=== PATIENT | female | born 1970 | race Caucasian/White ===

== ENCOUNTER 2019-12-21 17:41 | Emergency (ER) | payer MEDICAID ==
[~2019-12-21] VITALS: Ht 175.3 cm; Wt 150.0 kg
[~2019-12-21 17:41] MED LIST: CLA10T PO; FLUO20CA39 PO; HYDR-3965 PO; LISI-600 PO; PANT-47 PO; PRAV40TA65 PO
[2019-12-21 19:28] LABS: BASOPHILS # (AUTO) 0.1 X10'3 (0-0.2); BASOPHILS % (AUTO) 0.9 % (0-1); EOSINOPHILS # (AUTO) 0.2 X10'3 (0-0.9); EOSINOPHILS % (AUTO) 1.9 % (0-6); HEMATOCRIT 39.4 % (35.0-45.0); HEMOGLOBIN 13.9 g/dl (12.0-16.0); LYMPHOCYTES # (AUTO) 3.1 X10'3 (1.1-4.8); MEAN CORPUSCULAR HEMOGLOBIN 31.4 PG (27.0-31.0); MEAN CORPUSCULAR HGB CONC 35.3 g/dL (33.0-36.5); MEAN CORPUSCULAR VOLUME 88.8 FL (78-98); MEAN PLATELET VOLUME 7.6 FL (7.4-10.4); MONOCYTES # (AUTO) 0.6 X10'3 (0-0.9); MONOCYTES % (AUTO) 6.1 % (2-12); NEUTROPHILS # (AUTO) 5.8 X10'3 (1.8-7.7); NEUTROPHILS % (AUTO) 59.1 % (42-75); PLATELET COUNT 248 X10'3 (140-440); RED BLOOD COUNT 4.44 X10'6 (4.20-5.60); RED CELL DISTRIBUTION WIDTH 13.4 % (11.5-14.5); WHITE BLOOD COUNT 9.8 X10'3 (4.5-11.0)
[2019-12-21 19:44] LABS: ALANINE AMINOTRANSFERASE 42 U/L (12-78); ALBUMIN 3.2 G/DL (3.4-5.0); ALBUMIN/GLOBULIN RATIO 0.9 (1.1-1.5); ALKALINE PHOSPHATASE 89 IU/L (46-116); ANION GAP 11 (8-16); ASPARTATE AMINO TRANSFERASE 28 U/L (10-37); BILIRUBIN,TOTAL 0.2 MG/DL (0.1-1.0); BLOOD UREA NITROGEN 14 MG/DL (7-18); BUN/CREATININE RATIO 21.9 (6.6-38.0); CALCIUM 9.7 MG/DL (8.5-10.1); CHLORIDE 103 MMOL/L (99-107); CREATININE 0.64 MG/DL (0.40-0.90); GLUCOSE 174 MG/DL (70-104); POTASSIUM 3.5 MMOL/L (3.5-5.1); SODIUM 139 MMOL/L (135-145); TOTAL CARBON DIOXIDE 25.2 MMOL/L (24-32); TOTAL PROTEIN 6.9 G/DL (6.4-8.2); eGFR > 90 ML/MIN
[2019-12-21 20:38] VITALS: BP 115/69
== END 2019-12-21 21:10 | disposition home or self-care (01) ==
LOC: ER 17:42
DX: R07.89 Other chest pain (principal); M25.512 Pain in left shoulder; R05 Cough; I10 Essential (primary) hypertension; E11.9 Type 2 diabetes mellitus without complications; F17.200 Nicotine dependence, unspecified, uncomplicated; Z98.890 Other specified postprocedural states; Z88.0 Allergy status to penicillin; Z88.5 Allergy status to narcotic agent; Z79.899 Other long term (current) drug therapy
CPT/HCPCS: 36415; 71045; 80053; 84484; 85025; 93005; 99284

== ENCOUNTER 2020-04-04 08:35 | Emergency (ER) | payer MEDICAID ==
[~2020-04-04] VITALS: Ht 167.6 cm; Wt 113.7 kg
[2020-04-04 09:54] LABS: CLARITY,URINE SLIGHTLY CLOUDY (Clear); COLOR,URINE YELLOW (Yellow); GLUCOSE, URINE NEGATIVE (Neg); KETONES,URINE NEGATIVE (Neg); LEUKOCYTE ESTERASE ,URINE NEGATIVE (Neg); NITRITES, URINE NEGATIVE (Neg); OCCULT BLOOD,URINE LARGE (Neg); PROTEIN,URINE NEGATIVE (Neg)
[2020-04-04 09:59] LABS: BASOPHILS # (AUTO) 0.1 X10'3 (0-0.2); BASOPHILS % (AUTO) 0.4 % (0-1); EOSINOPHILS % (AUTO) 0.2 % (0-6); HEMOGLOBIN 13.3 g/dl (12.0-16.0); LYMPHOCYTES # (AUTO) 1.6 X10'3 (1.1-4.8); MEAN CORPUSCULAR HEMOGLOBIN 30.8 PG (27.0-31.0); MEAN CORPUSCULAR HGB CONC 34.1 g/dL (33.0-36.5); MEAN CORPUSCULAR VOLUME 90.2 FL (78-98); MEAN PLATELET VOLUME 7.6 FL (7.4-10.4); MONOCYTES # (AUTO) 1.1 X10'3 (0-0.9); MONOCYTES % (AUTO) 7.1 % (2-12); NEUTROPHILS # (AUTO) 13.3 X10'3 (1.8-7.7); NEUTROPHILS % (AUTO) 82.3 % (42-75); PLATELET COUNT 260 X10'3 (140-440); RED BLOOD COUNT 4.32 X10'6 (4.20-5.60); RED CELL DISTRIBUTION WIDTH 13.6 % (11.5-14.5); WHITE BLOOD COUNT 16.2 X10'3 (4.5-11.0)
[2020-04-04 10:00] LABS: UA COLLECTION TYPE CLN CATCH MIDSTREAM
[2020-04-04 10:01] LABS: BACTERIA,URINE 1+ /HPF (Neg); MUCUS STRANDS FEW /LPF (Neg); RENAL CELLS, URINE FEW /HPF; SQUAMOUS EPITHELIAL CELL,UR MODERATE /LPF (FEW); TRANSITIONAL EPI CELLS,URINE FEW /HPF; WBC,URINE 0-4 /HPF (0-4)
[2020-04-04 10:06] LABS: URINE HCG NEGATIVE (NEG)
[2020-04-04 10:13] LABS: ALBUMIN/GLOBULIN RATIO 0.7 (1.1-1.5); ALKALINE PHOSPHATASE 68 IU/L (46-116); ANION GAP 11 (8-16); ASPARTATE AMINO TRANSFERASE 23 U/L (10-37); BILIRUBIN,TOTAL 0.5 MG/DL (0.1-1.0); BLOOD UREA NITROGEN 14 MG/DL (7-18); BUN/CREATININE RATIO 13.2 (6.6-38.0); CALCIUM 9.1 MG/DL (8.5-10.1); CHLORIDE 97 MMOL/L (99-107); CREATININE 1.06 MG/DL (0.40-0.90); GLUCOSE 144 MG/DL (70-104); MAGNESIUM 1.4 MG/DL (1.5-2.4); POTASSIUM 3.9 MMOL/L (3.5-5.1); SODIUM 132 MMOL/L (135-145); TOTAL CARBON DIOXIDE 23.7 MMOL/L (24-32); TOTAL PROTEIN 7.5 G/DL (6.4-8.2); eGFR 55 ML/MIN
[2020-04-04 10:14] LABS: ALANINE AMINOTRANSFERASE < 6 U/L (12-78)
[2020-04-04] MEDS ORDERED: normal saline 1000ML IV soln IVB ONE ×2 (10:30→11:55)
[2020-04-04] MEDS ORDERED: CefTRIAXone 2gm/D5W 50ml 50 ML IV ONE (10:30)
[2020-04-04] MEDS ORDERED: ondansetron 4mg rapidly disintigrating tab PO ONE (11:00)
[2020-04-04] MEDS ORDERED: sulfamethoxazole/trimethoprim DS (800/160mg) tablet PO ONE (11:55)
[2020-04-04] MEDS ORDERED: CEPH500C5 PO (13:10)
[2020-04-04 13:37] VITALS: BP 112/65
[2020-04-05] MEDS ORDERED: CHOL500050 PO (12:31)
[2020-04-05] MEDS ORDERED: ASPI-1475 PO (12:31)
[2020-04-05] MEDS ORDERED: METF-438 PO (12:31)
[2020-04-05] MEDS ORDERED: HYDR25TA4 PO (12:31)
[2020-04-05] MEDS ORDERED: ATOR40TA72 PO (12:31)
[2020-04-05] MEDS ORDERED: CEPH-572 PO (12:32)
== END 2020-04-04 13:39 | disposition home or self-care (01) ==
LOC: ER 08:35
DX: L03.312 Cellulitis of back [any part except buttock and flank] (principal); R50.9 Fever, unspecified; I10 Essential (primary) hypertension; E11.9 Type 2 diabetes mellitus without complications; Z98.890 Other specified postprocedural states; Z88.0 Allergy status to penicillin; Z88.5 Allergy status to narcotic agent; Z79.899 Other long term (current) drug therapy
CPT/HCPCS: 80053; 81001; 81025; 83605; 83735; 84145; 85025; 87040; 96365; 99284; J0696; J7030

== ENCOUNTER 2020-04-05 06:52 | Inpatient (IN) | payer MEDICAID ==
[~2020-04-05] VITALS: Ht 167.6 cm; Wt 106.0 kg
[~2020-04-05 06:52] MED LIST changes: +CEPH500C5 PO
[2020-04-05] MEDS ORDERED: LIDOcaine 1% W/epiNEPHrine 1:100,000 20ml vial SQ ONE (07:35)
[2020-04-05] MEDS ORDERED: ethyl chloride 103.5ml spray TP ONE (07:40)
--- NOTE | 2020-04-05 08:20 | NUR ---
Assisted Dr Raphael with I&D of abscess on left axillary area. 115mL of purulent drainage removed from abscess. Dr Raphael packed wound with 1-4x4 and then put some 4x4s over it and secured it with tape.
[2020-04-05] MEDS ORDERED: normal saline 1000ml 1,000 ML IV ONE (08:29)
[2020-04-05 08:45] LABS: BASOPHILS % (AUTO) 0.2 % (0-1); EOSINOPHILS # (AUTO) 0.1 X10'3 (0-0.9); EOSINOPHILS % (AUTO) 0.3 % (0-6); HEMATOCRIT 37.1 % (35.0-45.0); HEMOGLOBIN 12.6 g/dl (12.0-16.0); LYMPHOCYTES # (AUTO) 1.4 X10'3 (1.1-4.8); LYMPHOCYTES % (AUTO) 9.1 % (21-51); MEAN CORPUSCULAR HEMOGLOBIN 30.9 PG (27.0-31.0); MEAN CORPUSCULAR VOLUME 91.1 FL (78-98); MEAN PLATELET VOLUME 7.4 FL (7.4-10.4); MONOCYTES # (AUTO) 1.1 X10'3 (0-0.9); MONOCYTES % (AUTO) 7.2 % (2-12); NEUTROPHILS # (AUTO) 12.5 X10'3 (1.8-7.7); NEUTROPHILS % (AUTO) 83.2 % (42-75); PLATELET COUNT 261 X10'3 (140-440); RED BLOOD COUNT 4.08 X10'6 (4.20-5.60); RED CELL DISTRIBUTION WIDTH 13.5 % (11.5-14.5)
[2020-04-05 09:01] LABS: ALANINE AMINOTRANSFERASE 24 U/L (12-78); ALBUMIN 2.5 G/DL (3.4-5.0); ALBUMIN/GLOBULIN RATIO 0.6 (1.1-1.5); ALKALINE PHOSPHATASE 71 IU/L (46-116); ANION GAP 8 (8-16); ASPARTATE AMINO TRANSFERASE 20 U/L (10-37); BILIRUBIN,TOTAL 0.3 MG/DL (0.1-1.0); BLOOD UREA NITROGEN 11 MG/DL (7-18); BUN/CREATININE RATIO 12.1 (6.6-38.0); C-REACTIVE PROTEIN 16.87 MG/DL (0.0-0.5); CALCIUM 8.9 MG/DL (8.5-10.1); CHLORIDE 99 MMOL/L (99-107); CREATININE 0.91 MG/DL (0.40-0.90); GLUCOSE 155 MG/DL (70-104); POTASSIUM 3.7 MMOL/L (3.5-5.1); SODIUM 132 MMOL/L (135-145); TOTAL CARBON DIOXIDE 24.6 MMOL/L (24-32); TOTAL PROTEIN 6.9 G/DL (6.4-8.2); eGFR 66 ML/MIN
[2020-04-05] MEDS: normal saline 1000ml 1,000 ML IV SCH ×2 (10:04→20:04)
[2020-04-05] MEDS ORDERED: ondansetron/PF 4mg/2ml inj IV PRN (10:05)
[2020-04-05] MEDS ORDERED: mag hydrox/Alum hydrox/simeth 30ml oral suspension PO PRN (10:05)
[2020-04-05] MEDS ORDERED: acetaminophen 325mg tablet PO PRN (10:05)
[2020-04-05] MEDS ORDERED: morphine 2 MG/ML inj. syringe IV PRN (10:05)
[2020-04-05] MEDS ORDERED: magnesium hydroxide 30ml (MOM) UD suspension PO PRN (10:05)
[2020-04-05] MEDS ORDERED: HYDROcodone/acetaminophen 5mg/325mg tablet PO PRN (10:05)
--- NOTE | 2020-04-05 11:10 | NUR ---
Report received from ED RNJordyn
[2020-04-05 11:30] VITALS: BP 97/51
[2020-04-05] MEDS ORDERED: ATOR40TA72 PO (12:31)
[2020-04-05] MEDS ORDERED: HYDR25TA4 PO (12:31)
[2020-04-05] MEDS ORDERED: ASPI-1475 PO (12:31)
[2020-04-05] MEDS ORDERED: CHOL500050 PO (12:31)
[2020-04-05] MEDS ORDERED: METF-438 PO (12:31)
[2020-04-05] MEDS ORDERED: CEPH-572 PO (12:32)
[2020-04-05] MEDS: atorvastatin 20mg tablet PO SCH (14:35)
[2020-04-05] MEDS: vitamin D (cholecalciferol) 1,000 unit tablet PO SCH (14:36)
[2020-04-05] MEDS ORDERED: iohexol 300mg/ml 100ml inj. ONE (16:23)
[2020-04-05] MEDS: VANCOMYCIN 1,500MG inj. 1,500 MG in normal saline 500ml IV soln 500 ML IV SCH (17:30)
[2020-04-05] MEDS ORDERED: metFORMIN 500mg tablet PO SCH (17:30)
--- NOTE | 2020-04-05 18:35 | NUR ---
Problems reprioritized. Patient report given, questions answered & plan of care reviewed with Daylin Mao RN.
--- NOTE | 2020-04-05 18:40 | NUR ---
Patient in room [facility]. I have received report from SYLVIA WITT and had the opportunity to ask questions and assume patient care.
[2020-04-05] MEDS: lactobacillus rhamnosus 10,000 MMU CELLS/CAPSULE PO SCH (19:30)
[2020-04-05] MEDS: heparin, porcine 5000 units/ml vial SQ SCH (19:31)
[2020-04-05 19:57] VITALS: BP 98/45
[2020-04-05] MEDS ORDERED: VANCOmycin 1250MG/NS 250ml Bag 250 ML IV ONE (20:00)
[2020-04-06] VITALS: BP 96/50
[2020-04-06] MEDS: normal saline 1000ml 1,000 ML IV SCH ×2 (01:10→16:13)
[2020-04-06] MEDS: VANCOMYCIN 1,500MG inj. 1,500 MG in normal saline 500ml IV soln 500 ML IV SCH ×3 (01:10→17:26)
[2020-04-06 04:37] LABS: BASOPHILS % (AUTO) 0.4 % (0-1); EOSINOPHILS # (AUTO) 0.2 X10'3 (0-0.9); HEMATOCRIT 34.1 % (35.0-45.0); HEMOGLOBIN 11.4 g/dl (12.0-16.0); LYMPHOCYTES # (AUTO) 1.2 X10'3 (1.1-4.8); LYMPHOCYTES % (AUTO) 14.3 % (21-51); MEAN CORPUSCULAR HEMOGLOBIN 30.7 PG (27.0-31.0); MEAN CORPUSCULAR HGB CONC 33.6 g/dL (33.0-36.5); MEAN CORPUSCULAR VOLUME 91.4 FL (78-98); MEAN PLATELET VOLUME 7.5 FL (7.4-10.4); MONOCYTES # (AUTO) 0.7 X10'3 (0-0.9); NEUTROPHILS # (AUTO) 6.1 X10'3 (1.8-7.7); NEUTROPHILS % (AUTO) 75.3 % (42-75); PLATELET COUNT 234 X10'3 (140-440); RED BLOOD COUNT 3.73 X10'6 (4.20-5.60); RED CELL DISTRIBUTION WIDTH 13.5 % (11.5-14.5); WHITE BLOOD COUNT 8.1 X10'3 (4.5-11.0)
[2020-04-06 04:47] LABS: ALBUMIN 2.3 G/DL (3.4-5.0); ANION GAP 6 (8-16); BLOOD UREA NITROGEN 9 MG/DL (7-18); BUN/CREATININE RATIO 12.3 (6.6-38.0); CALCIUM 8.2 MG/DL (8.5-10.1); CHLORIDE 104 MMOL/L (99-107); CREATININE 0.73 MG/DL (0.40-0.90); GLUCOSE 145 MG/DL (70-104); POTASSIUM 3.6 MMOL/L (3.5-5.1); SODIUM 137 MMOL/L (135-145); TOTAL CARBON DIOXIDE 27.2 MMOL/L (24-32); eGFR 85 ML/MIN
--- NOTE | 2020-04-06 06:05 | NUR ---
Patient in room [facility]. I have received report from Daylin Mao RN and had the opportunity to ask questions and assume patient care.
[2020-04-06 06:30] VITALS: BP 99/53
--- NOTE | 2020-04-06 06:30 | NUR ---
Problems reprioritized. Patient report given, questions answered & plan of care reviewed with SYLVIA RN.
[2020-04-06] MEDS: atorvastatin 20mg tablet PO SCH (08:59)
[2020-04-06] MEDS: aspirin 81mg tablet.DR PO SCH (08:59)
[2020-04-06] MEDS: loratadine 10mg tablet PO SCH (08:59)
[2020-04-06] MEDS: lactobacillus rhamnosus 10,000 MMU CELLS/CAPSULE PO SCH ×2 (08:59→20:45)
[2020-04-06] MEDS: FLUoxetine 20mg capsule PO SCH (09:00)
[2020-04-06] MEDS: vitamin D (cholecalciferol) 1,000 unit tablet PO SCH (09:00)
[2020-04-06] MEDS: lisinopril 20mg tablet PO SCH (09:05)
[2020-04-06] MEDS: HYDROchlorothiazide 25mg tablet PO SCH (09:05)
[2020-04-06] MEDS: heparin, porcine 5000 units/ml vial SQ SCH ×2 (09:25→20:48)
[2020-04-06 11:00] VITALS: BP 114/68
--- NOTE | 2020-04-06 15:57 | NUR ---
DM Consult: Pt admit w/ axillary cellulitis and L axillary abscess s/p I&D in ER. Possible sepsis as well per MD note w/ sepsis score this AM 0 per EMR. Pt PO 100% avg meals w/ 106kg scaled wt; double eggs at breakfast and double meats BIDLD added to better meet pt needs given wt and PO hx. Written DM ed w/ RD contact information placed in pt chart. Addendum: 04/06/20 at [address] Amended: Links added.
[2020-04-06 16:00] VITALS: BP 110/60
[2020-04-06] MEDS ORDERED: VANCOMYCIN LEVEL IV ONE (16:30)
[2020-04-06 18:00] VITALS: BP 110/60
--- NOTE | 2020-04-06 18:10 | NUR ---
Problems reprioritized. Patient report given, questions answered & plan of care reviewed with EDUAR Ayala.
--- NOTE | 2020-04-06 18:30 | NUR ---
Patient in room [facility]. I have received report from SYLVIA and had the opportunity to ask questions and assume patient care. ASSUMED CARE OF PT WITH RN STUDENT JOELLE Hernández
[2020-04-06 23:27] VITALS: BP 102/57
[2020-04-07] MEDS: VANCOMYCIN 1,500MG inj. 1,500 MG in normal saline 500ml IV soln 500 ML IV SCH ×2 (01:34→08:15)
[2020-04-07] MEDS: normal saline 1000ml 1,000 ML IV SCH ×2 (02:04→05:09)
--- NOTE | 2020-04-07 04:07 | NUR ---
Student documentation: I have reviewed and agree with all interventions, assessments performed and documented by JOELLE Ross Medication Administration: For this medication-pass time frame, all medication were reviewed, dispensed, administered and documented per hospital policy by JOELLE Hernández
[2020-04-07 04:59] LABS: BASOPHILS % (AUTO) 0.8 % (0-1); EOSINOPHILS # (AUTO) 0.2 X10'3 (0-0.9); EOSINOPHILS % (AUTO) 3.1 % (0-6); HEMATOCRIT 34.2 % (35.0-45.0); HEMOGLOBIN 11.5 g/dl (12.0-16.0); LYMPHOCYTES # (AUTO) 1.7 X10'3 (1.1-4.8); LYMPHOCYTES % (AUTO) 28.5 % (21-51); MEAN CORPUSCULAR HEMOGLOBIN 30.5 PG (27.0-31.0); MEAN CORPUSCULAR HGB CONC 33.6 g/dL (33.0-36.5); MEAN CORPUSCULAR VOLUME 90.6 FL (78-98); MEAN PLATELET VOLUME 7.5 FL (7.4-10.4); MONOCYTES # (AUTO) 0.7 X10'3 (0-0.9); MONOCYTES % (AUTO) 10.9 % (2-12); NEUTROPHILS # (AUTO) 3.4 X10'3 (1.8-7.7); NEUTROPHILS % (AUTO) 56.7 % (42-75); PLATELET COUNT 240 X10'3 (140-440); RED BLOOD COUNT 3.77 X10'6 (4.20-5.60); RED CELL DISTRIBUTION WIDTH 13.6 % (11.5-14.5)
[2020-04-07 05:02] LABS: ALBUMIN 2.2 G/DL (3.4-5.0); ANION GAP 9 (8-16); BLOOD UREA NITROGEN 9 MG/DL (7-18); BUN/CREATININE RATIO 13.6 (6.6-38.0); CALCIUM 8.6 MG/DL (8.5-10.1); CHLORIDE 106 MMOL/L (99-107); CREATININE 0.66 MG/DL (0.40-0.90); GLUCOSE 148 MG/DL (70-104); POTASSIUM 3.9 MMOL/L (3.5-5.1); SODIUM 140 MMOL/L (135-145); TOTAL CARBON DIOXIDE 25.5 MMOL/L (24-32); eGFR > 90 ML/MIN
--- NOTE | 2020-04-07 06:34 | NUR ---
Patient in room [facility]. I have received report from JEANNE LAI & EDUAR MITCHELL and had the opportunity to ask questions and assume patient care.
[2020-04-07 08:00] VITALS: BP 118/55
[2020-04-07] MEDS: vitamin D (cholecalciferol) 1,000 unit tablet PO SCH (08:15)
[2020-04-07] MEDS: heparin, porcine 5000 units/ml vial SQ SCH (08:15)
[2020-04-07] MEDS: lactobacillus rhamnosus 10,000 MMU CELLS/CAPSULE PO SCH (08:15)
[2020-04-07] MEDS: loratadine 10mg tablet PO SCH (08:15)
[2020-04-07] MEDS: HYDROchlorothiazide 25mg tablet PO SCH (08:15)
[2020-04-07] MEDS: FLUoxetine 20mg capsule PO SCH (08:15)
[2020-04-07] MEDS: aspirin 81mg tablet.DR PO SCH (08:16)
[2020-04-07] MEDS: lisinopril 20mg tablet PO SCH (08:16)
[2020-04-07] MEDS: atorvastatin 20mg tablet PO SCH (08:16)
[2020-04-07 11:00] VITALS: BP 119/71
[2020-04-07] MEDS ORDERED: DOXY-243 PO (11:31)
--- NOTE | 2020-04-07 12:50 | NUR ---
PATIENT STABLE AND APPROPRIATE FOR DISCHARGE, IV TAKEN OUT, MEDS E-SCRIPTED TO PREFERRED PHARMACY, EDUCATION GIVEN, ALL BELONGINGS INCLUDING A CPAP MACHINE SENT WITH PATIENT, PATIENT TAKEN TO LOBBY IN WHEELCHAIR TO AN AWAITING CAR WHERE SIGNIFICANT OTHER WILL TAKE PATIENT HOME
--- NOTE | 2020-04-07 16:15 | NUR ---
Patient called regarding medication that was transmitted to her preferred pharmacy stating that her insurance will not cover that medication and she is unable to pay the cost. Patient name and number was taken down and patient was informed that we would talk to case management and the MD to try and get a different medication ordered for her, case management was then called. Ramya Addendum: 04/07/20 at 1617 by Latisha Llamas RN Read following note, this was filed before finishing.
--- NOTE | 2020-04-07 16:20 | NUR ---
Patient called regarding medication that was transmitted to her preferred pharmacy stating that her insurance will not cover that medication and she is unable to pay the cost. Patient name and number was taken down and patient was informed that we would talk to case management and the MD to try and get a different medication ordered for her. Case management was then called and they stated that we should contact the MD and get an order for a medication that the patient's insurance would cover. Per case technician the insurance for this patient was Partnership. Dr. Perez paged and he quickly returned the page. Dr. Perez gave new order for Bactrim DS which was then called into patient's preferred pharmacy ([facility] on [address]). Patient was then called to notify of the change in medication ordered. There was no answer. A message was left for the patient asking the patient to call back to the surgical unit.
--- NOTE | 2020-04-07 17:08 | NUR ---
Patient called back and was informed about the change in medication. Patient stated that she would go and pick and shovel man the new medication.
== END 2020-04-07 12:51 | disposition home or self-care (01) | DRG 383 ==
LOC: ER 06:53 → ED HOLD 10:04 → EDBEDREQ 10:31 → SUR 3N 11:29
PROVIDERS: ADMIT Family Medicine; ATTEND Family Medicine
PROC: 0X953ZZ Drainage of Left Axilla, Percutaneous Approach (ICD-10-PCS; principal; 2020-04-05)
PROC: BW241ZZ Computerized Tomography (CT Scan) of Chest and Abdomen using Low Osmolar Contrast (ICD-10-PCS; 2020-04-05)
PROC: 5A09357 Assistance with Respiratory Ventilation, Less than 24 Consecutive Hours, Continuous Positive Airway Pressure (ICD-10-PCS; 2020-04-06)
DX: L03.112 Cellulitis of left axilla (principal); E11.9 Type 2 diabetes mellitus without complications; E66.9 Obesity, unspecified; E78.5 Hyperlipidemia, unspecified; F17.210 Nicotine dependence, cigarettes, uncomplicated; G89.4 Chronic pain syndrome; I10 Essential (primary) hypertension; Z88.0 Allergy status to penicillin; Z88.5 Allergy status to narcotic agent; Z68.37 Body mass index [BMI] 37.0-37.9, adult; Z79.899 Other long term (current) drug therapy
CPT/HCPCS: 10060; 36415; 71260; 80048; 80053; 80202; 82948; 83036; 83605; 85025; 86140; 87040; 87070; 87077; 87081; 96365; 99285; G0378; J1644; J3370; J7030; J7040; Q9967

== ENCOUNTER 2020-04-10 08:20 | Day surgery (SDC) | payer MEDICAID ==
[~2020-04-10 08:20] MED LIST changes: +ASPI-1475 PO; +ATOR40TA72 PO; -CEPH500C5 PO; +CHOL500050 PO; +DOXY-243 PO; -HYDR-3965 PO; +HYDR25TA4 PO; +METF-438 PO; -PANT-47 PO; -PRAV40TA65 PO
[2020-04-10] MEDS ORDERED: LIDOcaine 2% 5ml jelly ONE (08:58)
== END 2020-04-10 09:43 | disposition home or self-care (01) ==
LOC: WOUND CARE 08:20
PROVIDERS: ATTEND Nurse Practitioner
DX: E11.622 Type 2 diabetes mellitus with other skin ulcer (principal); L98.492 Non-pressure chronic ulcer of skin of other sites with fat layer exposed; L02.412 Cutaneous abscess of left axilla; E11.65 Type 2 diabetes mellitus with hyperglycemia; I10 Essential (primary) hypertension; E78.5 Hyperlipidemia, unspecified; E66.9 Obesity, unspecified; M79.89 Other specified soft tissue disorders; G89.4 Chronic pain syndrome; F17.210 Nicotine dependence, cigarettes, uncomplicated; Z88.0 Allergy status to penicillin; Z88.5 Allergy status to narcotic agent; Z79.899 Other long term (current) drug therapy; Z98.890 Other specified postprocedural states; Z68.41 Body mass index [BMI] 40.0-44.9, adult
CPT/HCPCS: 36416; 82948; 97597

== ENCOUNTER 2020-04-11 08:30 | Day surgery (SDC) | payer MEDICAID ==
[2020-04-11] MEDS ORDERED: LIDOcaine 2% 5ml jelly ONE (09:09)
== END 2020-04-11 09:39 | disposition home or self-care (01) ==
LOC: WOUND CARE 08:30
PROVIDERS: ATTEND Nurse Practitioner
DX: E11.622 Type 2 diabetes mellitus with other skin ulcer (principal); L98.492 Non-pressure chronic ulcer of skin of other sites with fat layer exposed; L02.412 Cutaneous abscess of left axilla; E11.65 Type 2 diabetes mellitus with hyperglycemia; I10 Essential (primary) hypertension; E78.5 Hyperlipidemia, unspecified; E66.9 Obesity, unspecified; M79.89 Other specified soft tissue disorders; G89.4 Chronic pain syndrome; F17.210 Nicotine dependence, cigarettes, uncomplicated; Z79.899 Other long term (current) drug therapy; Z98.890 Other specified postprocedural states; Z68.41 Body mass index [BMI] 40.0-44.9, adult
CPT/HCPCS: 36416; 82948; 97597

== ENCOUNTER 2020-04-17 10:00 | Day surgery (SDC) | payer MEDICAID ==
[2020-04-17] MEDS ORDERED: LIDOcaine 2% 5ml jelly ONE (10:35)
== END 2020-04-17 10:50 | disposition home or self-care (01) ==
LOC: WOUND CARE 10:00
PROVIDERS: ATTEND Nurse Practitioner
DX: E11.622 Type 2 diabetes mellitus with other skin ulcer (principal); L98.492 Non-pressure chronic ulcer of skin of other sites with fat layer exposed; L02.412 Cutaneous abscess of left axilla; E11.65 Type 2 diabetes mellitus with hyperglycemia; E78.5 Hyperlipidemia, unspecified; I10 Essential (primary) hypertension; E66.9 Obesity, unspecified; M79.89 Other specified soft tissue disorders; G89.4 Chronic pain syndrome; F17.210 Nicotine dependence, cigarettes, uncomplicated; Z79.899 Other long term (current) drug therapy; Z98.890 Other specified postprocedural states; Z68.41 Body mass index [BMI] 40.0-44.9, adult
CPT/HCPCS: 36416; 82948; 97597

== ENCOUNTER 2020-04-24 08:41 | Day surgery (SDC) | payer MEDICAID | END 2020-04-24 11:06 | disposition home or self-care (01) | LOC: WOUND CARE 08:41 | PROVIDERS: ATTEND Nurse Practitioner | DX: E11.622 Type 2 diabetes mellitus with other skin ulcer (principal); L98.492 Non-pressure chronic ulcer of skin of other sites with fat layer exposed; L02.412 Cutaneous abscess of left axilla; E11.65 Type 2 diabetes mellitus with hyperglycemia; E78.5 Hyperlipidemia, unspecified; I10 Essential (primary) hypertension; E66.9 Obesity, unspecified; M79.89 Other specified soft tissue disorders; G89.4 Chronic pain syndrome; F17.210 Nicotine dependence, cigarettes, uncomplicated; Z79.899 Other long term (current) drug therapy; Z98.890 Other specified postprocedural states; Z68.41 Body mass index [BMI] 40.0-44.9, adult | CPT/HCPCS: 97597 ==

== ENCOUNTER 2020-05-01 08:40 | Day surgery (SDC) | payer MEDICAID ==
[~2020-05-01 08:40] MED LIST changes: -DOXY-243 PO
[2020-05-01] MEDS ORDERED: LIDOcaine 2% 5ml jelly ONE (09:02)
== END 2020-05-01 09:47 | disposition home or self-care (01) ==
LOC: WOUND CARE 08:40
PROVIDERS: ATTEND Nurse Practitioner
DX: E11.622 Type 2 diabetes mellitus with other skin ulcer (principal); L98.492 Non-pressure chronic ulcer of skin of other sites with fat layer exposed; L02.412 Cutaneous abscess of left axilla; E11.65 Type 2 diabetes mellitus with hyperglycemia; E78.5 Hyperlipidemia, unspecified; I10 Essential (primary) hypertension; E66.9 Obesity, unspecified; M79.89 Other specified soft tissue disorders; G89.4 Chronic pain syndrome; F17.210 Nicotine dependence, cigarettes, uncomplicated; Z79.899 Other long term (current) drug therapy; Z98.890 Other specified postprocedural states; Z68.41 Body mass index [BMI] 40.0-44.9, adult
CPT/HCPCS: 36416; 82948; 97597

== ENCOUNTER 2020-05-08 08:40 | Day surgery (SDC) | payer MEDICAID ==
[2020-05-08] MEDS ORDERED: LIDOcaine 2% 5ml jelly ONE (08:52)
== END 2020-05-08 09:30 | disposition home or self-care (01) ==
LOC: WOUND CARE 08:40
PROVIDERS: ATTEND Nurse Practitioner
DX: E11.622 Type 2 diabetes mellitus with other skin ulcer (principal); L98.492 Non-pressure chronic ulcer of skin of other sites with fat layer exposed; L02.412 Cutaneous abscess of left axilla; E11.65 Type 2 diabetes mellitus with hyperglycemia; E78.5 Hyperlipidemia, unspecified; I10 Essential (primary) hypertension; E66.9 Obesity, unspecified; M79.89 Other specified soft tissue disorders; G89.4 Chronic pain syndrome; F17.210 Nicotine dependence, cigarettes, uncomplicated; Z79.899 Other long term (current) drug therapy; Z98.890 Other specified postprocedural states; Z68.41 Body mass index [BMI] 40.0-44.9, adult
CPT/HCPCS: 82948; 97597

== ENCOUNTER 2020-05-14 08:45 | Day surgery (SDC) | payer MEDICAID ==
[2020-05-14] MEDS ORDERED: LIDOcaine 2% 5ml jelly ONE (09:02)
== END 2020-05-14 09:32 | disposition home or self-care (01) ==
LOC: WOUND CARE 08:45
PROVIDERS: ATTEND Nurse Practitioner
DX: E11.622 Type 2 diabetes mellitus with other skin ulcer (principal); L98.492 Non-pressure chronic ulcer of skin of other sites with fat layer exposed; L02.412 Cutaneous abscess of left axilla; E11.65 Type 2 diabetes mellitus with hyperglycemia; E78.5 Hyperlipidemia, unspecified; I10 Essential (primary) hypertension; E66.9 Obesity, unspecified; M79.89 Other specified soft tissue disorders; G89.4 Chronic pain syndrome; F17.210 Nicotine dependence, cigarettes, uncomplicated; Z79.899 Other long term (current) drug therapy; Z98.890 Other specified postprocedural states; Z68.41 Body mass index [BMI] 40.0-44.9, adult
CPT/HCPCS: 82948; 97597

== ENCOUNTER 2020-05-21 08:30 | Day surgery (SDC) | payer MEDICAID ==
[2020-05-21] MEDS ORDERED: LIDOcaine 2% 5ml jelly ONE (08:55)
== END 2020-05-21 09:24 | disposition home or self-care (01) ==
LOC: WOUND CARE 08:30
PROVIDERS: ATTEND Nurse Practitioner
DX: E11.622 Type 2 diabetes mellitus with other skin ulcer (principal); L98.492 Non-pressure chronic ulcer of skin of other sites with fat layer exposed; L02.412 Cutaneous abscess of left axilla; E11.65 Type 2 diabetes mellitus with hyperglycemia; E78.5 Hyperlipidemia, unspecified; I10 Essential (primary) hypertension; E66.9 Obesity, unspecified; M79.89 Other specified soft tissue disorders; G89.4 Chronic pain syndrome; F17.210 Nicotine dependence, cigarettes, uncomplicated; Z79.899 Other long term (current) drug therapy; Z98.890 Other specified postprocedural states; Z68.41 Body mass index [BMI] 40.0-44.9, adult
CPT/HCPCS: 82948; 97597

== ENCOUNTER 2020-05-28 08:33 | Day surgery (SDC) | payer MEDICAID ==
[2020-05-28] MEDS ORDERED: LIDOcaine 2% 5ml jelly ONE (08:55)
== END 2020-05-28 09:18 | disposition home or self-care (01) ==
LOC: WOUND CARE 08:33
PROVIDERS: ATTEND Nurse Practitioner
DX: E11.622 Type 2 diabetes mellitus with other skin ulcer (principal); L98.492 Non-pressure chronic ulcer of skin of other sites with fat layer exposed; L02.412 Cutaneous abscess of left axilla; E11.65 Type 2 diabetes mellitus with hyperglycemia; E78.5 Hyperlipidemia, unspecified; I10 Essential (primary) hypertension; E66.9 Obesity, unspecified; M79.89 Other specified soft tissue disorders; G89.4 Chronic pain syndrome; F17.210 Nicotine dependence, cigarettes, uncomplicated; Z79.899 Other long term (current) drug therapy; Z98.890 Other specified postprocedural states; Z68.41 Body mass index [BMI] 40.0-44.9, adult
CPT/HCPCS: 97597

== ENCOUNTER 2020-06-04 08:40 | Day surgery (SDC) | payer MEDICAID ==
[~2020-06-04 08:40] MED LIST changes: +BACDS PO
[2020-06-04] MEDS ORDERED: LIDOcaine 2% 5ml jelly ONE (09:12)
== END 2020-06-04 10:23 | disposition home or self-care (01) ==
LOC: WOUND CARE 08:40
PROVIDERS: ATTEND Nurse Practitioner
DX: E11.622 Type 2 diabetes mellitus with other skin ulcer (principal); L98.492 Non-pressure chronic ulcer of skin of other sites with fat layer exposed; L02.412 Cutaneous abscess of left axilla; E11.65 Type 2 diabetes mellitus with hyperglycemia; E78.5 Hyperlipidemia, unspecified; I10 Essential (primary) hypertension; E66.9 Obesity, unspecified; M79.89 Other specified soft tissue disorders; G89.4 Chronic pain syndrome; F17.210 Nicotine dependence, cigarettes, uncomplicated; Z79.899 Other long term (current) drug therapy; Z98.890 Other specified postprocedural states; Z68.41 Body mass index [BMI] 40.0-44.9, adult
CPT/HCPCS: 29581; 82948; 97597

== ENCOUNTER 2020-06-11 08:35 | Day surgery (SDC) | payer MEDICAID ==
[~2020-06-11 08:35] MED LIST changes: -BACDS PO
[2020-06-11] MEDS ORDERED: LIDOcaine 2% 5ml jelly ONE (08:58)
== END 2020-06-11 09:13 | disposition home or self-care (01) ==
LOC: WOUND CARE 08:35
PROVIDERS: ATTEND Nurse Practitioner
DX: E11.622 Type 2 diabetes mellitus with other skin ulcer (principal); L98.492 Non-pressure chronic ulcer of skin of other sites with fat layer exposed; L02.412 Cutaneous abscess of left axilla; E11.65 Type 2 diabetes mellitus with hyperglycemia; E78.5 Hyperlipidemia, unspecified; I10 Essential (primary) hypertension; E66.9 Obesity, unspecified; M79.89 Other specified soft tissue disorders; G89.4 Chronic pain syndrome; F17.210 Nicotine dependence, cigarettes, uncomplicated; Z79.899 Other long term (current) drug therapy; Z98.890 Other specified postprocedural states; Z68.41 Body mass index [BMI] 40.0-44.9, adult; Z79.2 Long term (current) use of antibiotics; Z79.4 Long term (current) use of insulin
CPT/HCPCS: 97597

== ENCOUNTER 2020-06-18 08:40 | Outpatient (CLI) | payer MEDICAID | END 2020-06-18 09:20 | disposition home or self-care (01) | LOC: EDSTATUS 08:40 → WOUND CARE 08:40 | PROVIDERS: ATTEND Nurse Practitioner | DX: E11.622 Type 2 diabetes mellitus with other skin ulcer (principal); L98.492 Non-pressure chronic ulcer of skin of other sites with fat layer exposed; L02.412 Cutaneous abscess of left axilla; E11.65 Type 2 diabetes mellitus with hyperglycemia; E78.5 Hyperlipidemia, unspecified; I10 Essential (primary) hypertension; E66.9 Obesity, unspecified; M79.89 Other specified soft tissue disorders; G89.4 Chronic pain syndrome; F17.210 Nicotine dependence, cigarettes, uncomplicated; Z79.899 Other long term (current) drug therapy; Z98.890 Other specified postprocedural states; Z68.41 Body mass index [BMI] 40.0-44.9, adult; Z79.2 Long term (current) use of antibiotics; Z79.4 Long term (current) use of insulin; Z79.82 Long term (current) use of aspirin | CPT/HCPCS: 36416; 82948; G0463 ==

== ENCOUNTER 2021-03-31 14:01 | Emergency (ER) | payer MEDICAID ==
[~2021-03-31] VITALS: Ht 167.6 cm; Wt 127.4 kg
[~2021-03-31 14:01] MED LIST changes: -LISI-600 PO; +LISI20TA28 PO
[2021-03-31 17:14] LABS: BASOPHILS # (AUTO) 0.1 X10'3 (0-0.2); BASOPHILS % (AUTO) 0.9 % (0-1); EOSINOPHILS # (AUTO) 0.2 X10'3 (0-0.9); EOSINOPHILS % (AUTO) 2.2 % (0-6); HEMATOCRIT 38.7 % (35.0-45.0); HEMOGLOBIN 13.3 g/dl (12.0-16.0); LYMPHOCYTES # (AUTO) 3.4 X10'3 (1.1-4.8); LYMPHOCYTES % (AUTO) 30.7 % (21-51); MEAN CORPUSCULAR HEMOGLOBIN 30.8 PG (27.0-31.0); MEAN CORPUSCULAR HGB CONC 34.3 g/dL (33.0-36.5); MEAN CORPUSCULAR VOLUME 89.8 FL (78-98); MEAN PLATELET VOLUME 7.4 FL (7.4-10.4); MONOCYTES # (AUTO) 0.6 X10'3 (0-0.9); MONOCYTES % (AUTO) 5.3 % (2-12); NEUTROPHILS # (AUTO) 6.7 X10'3 (1.8-7.7); NEUTROPHILS % (AUTO) 60.9 % (42-75); PLATELET COUNT 243 X10'3 (140-440); RED BLOOD COUNT 4.31 X10'6 (4.20-5.60)
[2021-03-31 17:25] LABS: ALANINE AMINOTRANSFERASE 60 U/L (12-78); ALBUMIN 3.3 G/DL (3.4-5.0); ALBUMIN/GLOBULIN RATIO 0.9 (1.1-1.5); ALKALINE PHOSPHATASE 86 IU/L (46-116); ANION GAP 9 (8-16); ASPARTATE AMINO TRANSFERASE 51 U/L (10-37); BILIRUBIN,TOTAL 0.2 MG/DL (0.1-1.0); BLOOD UREA NITROGEN 16 MG/DL (7-18); BUN/CREATININE RATIO 22.9 (6.6-38.0); CALCIUM 9.4 MG/DL (8.5-10.1); CHLORIDE 102 MMOL/L (99-107); GLUCOSE 153 MG/DL (70-104); LIPASE 266 U/L (73-393); POTASSIUM 3.9 MMOL/L (3.5-5.1); SODIUM 138 MMOL/L (135-145); TOTAL CARBON DIOXIDE 26.8 MMOL/L (24-32); TOTAL PROTEIN 7.1 G/DL (6.4-8.2); eGFR 89 ML/MIN
[2021-03-31] MEDS ORDERED: iohexol 300mg/ml 100ml inj. ONE (17:44)
[2021-03-31] MEDS ORDERED: MESSAGE TO NURSING PO SCH (18:00)
--- NOTE | 2021-03-31 18:09 | NUR ---
PT TO CT VIA WHEELCHAIR WITH EQUIPMENT SUPERINTENDENT
[2021-03-31 19:31] VITALS: BP 104/53
== END 2021-03-31 19:33 | disposition home or self-care (01) ==
LOC: ER 14:01
DX: R10.33 Periumbilical pain (principal); R19.8 Other specified symptoms and signs involving the digestive system and abdomen; R30.0 Dysuria; I10 Essential (primary) hypertension; E11.9 Type 2 diabetes mellitus without complications; Z00.00 Encounter for general adult medical examination without abnormal findings; Z98.890 Other specified postprocedural states; Z88.0 Allergy status to penicillin; Z88.8 Allergy status to other drugs, medicaments and biological substances; Z79.82 Long term (current) use of aspirin; Z79.899 Other long term (current) drug therapy
CPT/HCPCS: 36415; 74177; 80053; 83690; 85025; 99285; Q9967

== ENCOUNTER 2021-04-30 13:41 | Day surgery (SDC) | payer MEDICAID ==
[2021-04-24 15:20] LABS: BASOPHILS # (AUTO) 0.1 X10'3 (0-0.2); BASOPHILS % (AUTO) 0.9 % (0-1); EOSINOPHILS # (AUTO) 0.3 X10'3 (0-0.9); EOSINOPHILS % (AUTO) 3.1 % (0-6); LYMPHOCYTES % (AUTO) 32.1 % (21-51); MEAN CORPUSCULAR HEMOGLOBIN 30.8 PG (27.0-31.0); MEAN CORPUSCULAR HGB CONC 34.3 g/dL (33.0-36.5); MEAN CORPUSCULAR VOLUME 89.9 FL (78-98); MEAN PLATELET VOLUME 7.4 FL (7.4-10.4); MONOCYTES # (AUTO) 0.7 X10'3 (0-0.9); NEUTROPHILS # (AUTO) 5.4 X10'3 (1.8-7.7); NEUTROPHILS % (AUTO) 56.9 % (42-75); PRE OP HEMATOCRIT 39.7 % (35.0-45.0); PRE OP HEMOGLOBIN 13.6 g/dL (12.0-16.0); PRE OP PLATELET COUNT 272 X10'3 (140-440); RED BLOOD COUNT 4.42 X10'6 (4.20-5.60); RED CELL DISTRIBUTION WIDTH 14.1 % (11.5-14.5)
[2021-04-24 15:33] LABS: ALBUMIN 3.5 G/DL (3.4-5.0); ALBUMIN/GLOBULIN RATIO 0.9 (1.1-1.5); ALKALINE PHOSPHATASE 81 IU/L (46-116); BLOOD UREA NITROGEN 16 MG/DL (7-18); BUN/CREATININE RATIO 20.8 (6.6-38.0); CALCIUM 9.8 MG/DL (8.5-10.1); CHLORIDE 100 MMOL/L (99-107); CREATININE 0.77 MG/DL (0.40-0.90); PRE OP ALT 70 U/L (30-65); PRE OP ANION GAP 8 (8-16); PRE OP AST 67 U/L (10-37); PRE OP BILIRUB, TOTAL 0.2 MG/DL (0.0-1.0); PRE OP SODIUM 138 MMOL/L (135-145); TOTAL CARBON DIOXIDE 30.3 MMOL/L (24-32); TOTAL PROTEIN 7.3 G/DL (6.4-8.2); eGFR 80 ML/MIN
[2021-04-24 15:34] LABS: PRE OP GLUCOSE 218 MG/DL (70-104)
[~2021-04-30] VITALS: Ht 167.6 cm; Wt 126.0 kg
[2021-04-30] VITALS (9 sets, daily range): BP systolic 120–148; BP diastolic 61–89
[~2021-04-30 13:41] MED LIST changes: +LORA10TA7 PO; +NICO2GUM29 PO; +albuterol 2.5 MG/3 ML nebule NEB ONE; +ceFAZolin 2gm in dextrose, iso 50 ML IV ONE; +ceFAZolin/D5W- 1GM premix 50 ML IV ONE; +famotidine 20mg tablet PO ONE; +ringers solution, lacted 1,000 ML IV SCH
[2021-04-30] MEDS ORDERED: proCHLORperazine 10 MG/2 ml inj IV PRN (15:30)
[2021-04-30] MEDS ORDERED: ondansetron/PF 4mg/2ml inj IV PRN (15:30)
[2021-04-30] MEDS ORDERED: morphine 4 MG/ML inj SYRINge IV PRN (15:30)
[2021-04-30] MEDS ORDERED: BUPIVAcaine/PF 2.5 mg/ml (0.25%) 30ml vial ONE (15:30)
[2021-04-30] MEDS ORDERED: LIDOcaine 1% 30ml preserv. free vial ONE (15:30)
[2021-04-30] MEDS ORDERED: morphine 2 MG/ML inj. syringe IV PRN (15:30)
[2021-04-30] MEDS ORDERED: ringers solution, lacted 1,000 ML IV SCH (15:30)
[2021-04-30] MEDS ORDERED: meperidine/PF 25mg/ml syringe IV PRN ×3 (15:30)
[2021-04-30] MEDS ORDERED: BUPIVAcaine/PF 2.5mg/ml (0.25%) 10ml vial ONE (15:30)
[2021-04-30] MEDS ORDERED: BUPIVACAINE liposomal/PF 13.3 MG/ML vial IM ONE (15:31)
[2021-04-30] MEDS ORDERED: phenylephrine 10mg/ml inj. ONE (15:40)
[2021-04-30] MEDS ORDERED: LIDOcaine 1%/PF 5ML 10 MG/ML VIAL ONE (15:40)
[2021-04-30] MEDS ORDERED: sevoflurane 250ml liquid IH ONE (15:40)
[2021-04-30] MEDS ORDERED: midazolam 1 mg/ML 2ml injection ONE (15:41)
[2021-04-30] MEDS ORDERED: fentaNYL /PF 50mcg/ml 5ml ampule ONE (15:41)
[2021-04-30] MEDS ORDERED: ondansetron/PF 4mg/2ml inj ONE (16:39)
[2021-04-30] MEDS ORDERED: LIDOcaine 2% (20mg/ml) 5ml vial ONE (16:39)
[2021-04-30] MEDS ORDERED: propofol inj 20 ML IV ONE (16:39)
[2021-04-30] MEDS ORDERED: rocuronium 10mg/ml inj IV ONE (16:39)
[2021-04-30] MEDS ORDERED: sugammadex 200mg/2ml injection IV ONE ×2 (16:41→16:43)
--- NOTE | 2021-04-30 16:54 | NUR ---
Received from OR via , accompanied by Anesthesiologist DR LEDESMA and report given by Anesthesiolgist. AWAKENS TO VOICE. VITALS STABLE. DRESSINGS DI. SYLVIA PAIN. ABD SOFT.
[2021-04-30] MEDS ORDERED: traMADol 50MG tablet PO PRN (17:05)
[2021-04-30] MEDS ORDERED: acetaminophen 1,000mg/100ml IV 100 ML IV ONE (17:16)
--- NOTE | 2021-04-30 18:14 | NUR ---
AWAKE AND ORIENTED. VITALS STABLE. DRESSINGS DI. STATES PAIN IMPROVING. HOME WITH A FRIEND AT THIS TIME.
== END 2021-04-30 18:14 | disposition home or self-care (01) ==
LOC: PAS 13:41
PROVIDERS: ATTEND Surgery
DX: K42.9 Umbilical hernia without obstruction or gangrene (principal); K66.0 Peritoneal adhesions (postprocedural) (postinfection); Z98.890 Other specified postprocedural states; F17.210 Nicotine dependence, cigarettes, uncomplicated; G47.30 Sleep apnea, unspecified; Z88.6 Allergy status to analgesic agent; Z88.8 Allergy status to other drugs, medicaments and biological substances; E11.9 Type 2 diabetes mellitus without complications; M19.90 Unspecified osteoarthritis, unspecified site; Z86.14 Personal history of Methicillin resistant Staphylococcus aureus infection; Z79.899 Other long term (current) drug therapy
CPT/HCPCS: 36415; 49329; 80053; 82948; 85025; 93005; 94640; 94760; C9290; C9399; J0131; J0690; J2001; J2175; J2250; J2370; J2405; J2704; J3010; J3490; S2900; U0003; U0005; A4215; A4618; J7120

== ENCOUNTER 2023-01-16 08:29 | Emergency (ER) | payer MEDICAID ==
[~2023-01-16] VITALS: Ht 167.6 cm; Wt 113.6 kg
[~2023-01-16 08:29] MED LIST changes: -CLA10T PO; -albuterol 2.5 MG/3 ML nebule NEB ONE; -ceFAZolin 2gm in dextrose, iso 50 ML IV ONE; -ceFAZolin/D5W- 1GM premix 50 ML IV ONE; -famotidine 20mg tablet PO ONE; -ringers solution, lacted 1,000 ML IV SCH
[2023-01-16 08:56] VITALS: BP 128/92
[2023-01-16] MEDS ORDERED: acetaminophen 325mg tablet PO ONE (10:40)
== END 2023-01-16 11:15 | disposition home or self-care (01) ==
LOC: ER 08:30
DX: M19.072 Primary osteoarthritis, left ankle and foot (principal); M25.472 Effusion, left ankle; I10 Essential (primary) hypertension; E11.9 Type 2 diabetes mellitus without complications; M25.572 Pain in left ankle and joints of left foot; Z88.0 Allergy status to penicillin; Z88.8 Allergy status to other drugs, medicaments and biological substances; Z88.5 Allergy status to narcotic agent; Z79.899 Other long term (current) drug therapy; Z79.82 Long term (current) use of aspirin
CPT/HCPCS: 29540; 73610; 99283

== ENCOUNTER 2023-03-25 14:09 | Emergency (ER) | payer MEDICAID ==
[~2023-03-25] VITALS: Ht 167.6 cm; Wt 111.4 kg
[2023-03-25 14:20] VITALS: BP 135/52
[2023-03-25] MEDS ORDERED: oxyCODONE/APAP 10/325mg tablet PO ONE (14:50)
[2023-03-25] MEDS ORDERED: IBUP-1986 PO (15:07)
== END 2023-03-25 15:32 | disposition home or self-care (01) ==
LOC: ER 14:10
DX: M54.42 Lumbago with sciatica, left side (principal); I10 Essential (primary) hypertension; E11.9 Type 2 diabetes mellitus without complications; Z88.0 Allergy status to penicillin; Z88.5 Allergy status to narcotic agent; Z88.1 Allergy status to other antibiotic agents; Z79.1 Long term (current) use of non-steroidal anti-inflammatories (NSAID)
CPT/HCPCS: 99283

== ENCOUNTER 2023-12-18 05:28 | Emergency (ER) | payer MEDICAID ==
[~2023-12-18] VITALS: Ht 167.6 cm; Wt 113.6 kg
[~2023-12-18 05:28] MED LIST changes: +IBUP-1986 PO
[2023-12-18 06:00] VITALS: PULSE 86; O2SAT 98
[2023-12-18 08:50] LABS: BASOPHILS # (AUTO) 0.1 X10'3 (0-0.2); BASOPHILS % (AUTO) 0.6 % (0-1); EOSINOPHILS # (AUTO) 0.2 X10'3 (0-0.9); EOSINOPHILS % (AUTO) 2.1 % (0-6); HEMATOCRIT 42.1 % (35.0-45.0); HEMOGLOBIN 14.6 g/dl (12.0-16.0); LYMPHOCYTES # (AUTO) 3.4 X10'3 (1.1-4.8); LYMPHOCYTES % (AUTO) 31.9 % (21-51); MEAN CORPUSCULAR HEMOGLOBIN 31.6 PG (27.0-31.0); MEAN CORPUSCULAR HGB CONC 34.8 g/dL (33.0-36.5); MEAN PLATELET VOLUME 7.9 FL (7.4-10.4); MONOCYTES # (AUTO) 0.5 X10'3 (0-0.9); MONOCYTES % (AUTO) 4.7 % (2-12); NEUTROPHILS # (AUTO) 6.5 X10'3 (1.8-7.7); NEUTROPHILS % (AUTO) 60.7 % (42-75); PLATELET COUNT 238 X10'3 (140-440); RED BLOOD COUNT 4.62 X10'6 (4.20-5.60); RED CELL DISTRIBUTION WIDTH 13.9 % (11.5-14.5); WHITE BLOOD COUNT 10.7 X10'3 (4.5-11.0)
[2023-12-18 08:58] LABS: ALANINE AMINOTRANSFERASE 80 U/L (12-78); ALBUMIN 3.7 G/DL (3.4-5.0); ALBUMIN/GLOBULIN RATIO 0.9 (1.1-1.5); ALKALINE PHOSPHATASE 78 IU/L (46-116); ANION GAP 9 (8-16); ASPARTATE AMINO TRANSFERASE 80 U/L (10-37); BILIRUBIN,TOTAL 0.3 MG/DL (0.1-1.0); BLOOD UREA NITROGEN 13 MG/DL (7-18); BUN/CREATININE RATIO 18.8 (10.0-20.0); CALCIUM 9.9 MG/DL (8.5-10.1); CHLORIDE 101 MMOL/L (99-107); CREATININE 0.69 MG/DL (0.40-0.90); GLUCOSE 137 MG/DL (70-104); LIPASE 134 U/L (16-77); POTASSIUM 4.1 MMOL/L (3.5-5.1); SODIUM 137 MMOL/L (135-145); TOTAL CARBON DIOXIDE 27.5 MMOL/L (24-32); TOTAL PROTEIN 7.9 G/DL (6.4-8.2); eCRCL 90 ML/MIN; eGFR 90 ML/MIN
[2023-12-18 09:41] LABS: BILIRUBIN,URINE NEGATIVE (Neg); CLARITY,URINE SLIGHTLY CLOUDY (Clear); COLOR,URINE YELLOW (Yellow); GLUCOSE, URINE NEGATIVE (Neg); KETONES,URINE NEGATIVE (Neg); LEUKOCYTE ESTERASE ,URINE TRACE (Neg); NITRITES, URINE NEGATIVE (Neg); OCCULT BLOOD,URINE NEGATIVE (Neg); PH,URINE 6.5 (4.8-8.0); PROTEIN,URINE NEGATIVE (Neg); UROBILINOGEN,URINE 0.2 E.U/dL (0.2-1.0)
[2023-12-18 09:49] LABS: UA COLLECTION TYPE NON-SPECIFIED
[2023-12-18 09:52] LABS: MUCUS STRANDS FEW /LPF (Neg); SQUAMOUS EPITHELIAL CELL,UR MANY /LPF (FEW)
[2023-12-18 09:53] LABS: WBC,URINE 30-50 /HPF (0-4)
[2023-12-18 09:54] LABS: BACTERIA,URINE 2+ /HPF (Neg); RBC,URINE NONE SEEN /HPF (0-2)
[2023-12-18 10:01] VITALS: BP 137/81; RESP 16; TEMP 97.9
== END 2023-12-18 10:02 | disposition home or self-care (01) ==
LOC: ER 05:29
DX: S29.011A Strain of muscle and tendon of front wall of thorax, initial encounter (principal); R79.89 Other specified abnormal findings of blood chemistry; D89.0 Polyclonal hypergammaglobulinemia; R74.8 Abnormal levels of other serum enzymes; X58.XXXA Exposure to other specified factors, initial encounter; Y93.89 Activity, other specified; Y92.89 Other specified places as the place of occurrence of the external cause; Y99.8 Other external cause status
CPT/HCPCS: 36415; 71046; 76700; 80053; 81001; 83690; 85025; 99284

== ENCOUNTER 2025-05-16 05:19 | Emergency (ER) | payer MEDICAID ==
[~2025-05-16] VITALS: Ht 167.6 cm; Wt 109.7 kg
[2025-05-16 05:38] VITALS: TEMP 97.5
[2025-05-16] MEDS ORDERED: SITA50TA PO (05:41)
--- NOTE | 2025-05-16 06:07 | Physician Documentation ---
History of Present Illness ~ Chief Complaint: Abscess Stated Complaint: ABSCESS Time Seen by MD: 06:07 Primary Medical Doctor: [facility] Mode of Arrival: POV HPI 55-year-old female, history of diabetes, presenting with abdominal wall ab scesses She tells me that over the past 1 week, she has developed redness and swelling and pain around her left lower pannus. One of the wound started to open and drain. She thinks that they are abscesses. She reports a history of abscess in the past requiring drainage but this was several years ago. No fevers, chills, or other systemic symptoms. She has been checking her blood sugars and they have been running around 175-200. No other acute concerns. She does have allergies to penicillins. Tetanus Within 5 Years: Yes Medication Reconciliation Allergies: Coded Allergies: Penicillins (Verified Allergy, Intermediate, HIVES, 05/16/25) codeine (Unverified Allergy, Intermediate, HIVES, 05/16/25) amoxicillin (Verified Allergy, Mild, RASH, 05/16/25) azelastine (Verified Allergy, Mild, NAUSEA, 05/16/25) hydrocodone (Unverified Allergy, Unknown, itchy, 05/16/25) Scheduled Aspirin (Aspirin EC), 1 TAB PO DAILY, (Reported) Atorvastatin Calcium (Atorvastatin Calcium), 1 TAB PO DAILY, (Reported) Cholecalciferol (Vitamin D3) (Vitamin D3), 1 CAP PO DAILY, (Reported) Fluoxetine Hcl* (Prozac*), 40 MG PO DAILY, (Reported) Hydrochlorothiazide (Hydrochlorothiazide), 1 TAB PO DAILY, (Reported) Lisinopril (Lisinopril), 2 TAB PO DAILY, (Reported) Loratadine (Loratadine), 1 TAB PO DAILY, (Reported) Metformin HCl (Metformin HCl), 1 TAB PO BIDWM, (Reported) Sitagliptin Phosphate (Januvia), 1 TAB PO DAILY, (Reported) Sulfamethoxazole/Trimethoprim (Bactrim Ds Tablet), 1 TAB PO Q12H Discontinued Medications Ibuprofen (Ibuprofen), 1 TAB PO Q8H Discontinued Reason: patient no longer taking Nicotine Polacrilex (Nicotine Gum), 1 PIECE GUM PO Q1HR, (Reported) Discontinued Reason: patient no longer taking Past Medical History Past Medical History: Hypertension, Diabetes Past Surgical History: noncontributory, orthopedic surgeries Other Past Surgical History: hernia repair Patient History: FH: ADHD (attention deficit hyperactivity disorder) CHILD, Name: nurys Morejon, Born 08/23/92, Age: 32, Not a twin, Onset:Childhood CHILD, Name: Justin Duron, Born 02/25/96, Age: 29, Not a twin, Onset:Childhood CHILD, Name: Veronika Duron, Born 02/01/03, Age: 22, Not a twin, Onset:Childhood CHILD, Name: Timothy Duron, Born 01/25/09, Age: 16, Not a twin, Onset:Childhood Other Past Family History: NONE Alcohol Use: None Drug Use: none Lives with: Family Lives In: Home Review of Systems Constitutional: Denies: chills, fever Integumentary: Reports: rash, lumps Physical Exam Vital Signs: Temperature: 97.5, Source: Oral, Heart Rate: 86, Respiratory Rate: 16, BP: 99/47, Pulse Oximetry: 96, Weight: 109.730 Oxygen Flow Rate: 0 Physical Exam General: This is a pleasant and nontoxic appearing middle-aged woman sitting calmly in bed Heart: Regular rate and rhythm, normal-appearing peripheral perfusion Lungs: normal work of breathing, normal oxygen saturation on room air Abdomen: On the lower left pannus, there is an area of erythema, induration, and palpable fluctuance, which appears consistent with an abscess. There is a small open wound, with no current active drainage. There was mild surrounding cellulitic changes. No streaking redness outside of this area. She is tender in this region only, otherwise no abdominal tenderness. Neuro: Alert and oriented Psychiatric: Calm and cooperative with exam Procedures I & D Procedure : Anesthesia: Lidocaine w/ Epi Blade Size: 11 Prep/Supplies: betadine prep Incision: mass incised, pus drained Tolerated Procedure Well?: yes, no complications Procedure Note The area of abscess was identified using bedside ultrasound. The skin was esa glendy and anesthetized, and an incision was made over the abscess. Pus was drained, and the area was flushed and irrigated. Packing was placed into the wound temporarily. It was bandaged. The patient tolerated this well, no complications. Progress Results/Orders Results/Orders Completed Orders - GARTH DÍAZ MD Sulfamethox/Trimetho. Ds Tab (Septra Ds (05/16/25 06:50) Vital Signs 05/16/25 05/16/25 05/16/25 05:22 05:35 05:38 Temp 97.5 97.5 Pulse 89 86 Resp 14 16 16 B/P (MAP) 111/54 99/47 (64) Pulse Ox 96 96 O2 Flow Rate 0 0 Medical Decision Making Differential Dx:Considerations: Include: Abscess, Bacteremia, Cellulitis, Hidrademitis suppurativa Additional Comment The patient presents with abdominal wall abscesses. This will require incision and drainage and antibiotic treatment. Bedside ultrasound confirms an abscess. Incision and drainage performed as above. She will be discharged with antibiotics and home care instructions. She can return if she has worsening signs of infection. Departure Time of Disposition: 06:53 Disposition: 01 HOME / SELF CARE / HOMELESS Impression: Primary Impression: Abscess Additional Impression: Cellulitis Condition: Improved Discharge Instructions: Abscess, Care After Referrals: NO PRIMARY CARE PROVIDER (PCP) Prescriptions Sulfamethoxazole/Trimethoprim (Bactrim Ds Tablet) 800 Mg-160 Mg Tablet 1 TAB PO Q12H for 10 Days, #20 TAB Prov: GARTH DÍAZ MD 05/16/25 Education Educated: Patient Educated regarding: diagnosis, treatment, need for follow up Signature Scribe Signature: na Attestation: GARTH Menendez MD May 16, 2025 06:07
[2025-05-16] MEDS ORDERED: SULF1TAB49 PO (06:54)
[2025-05-16 06:56] VITALS: BP 119/50; PULSE 80; RESP 18; O2SAT 96
[2025-05-16] MEDS: sulfamethoxazole/trimethoprim DS (800/160mg) tablet PO ONE (07:01)
== END 2025-05-16 07:09 | disposition home or self-care (01) ==
LOC: ER 05:20
DX: L02.211 Cutaneous abscess of abdominal wall (principal); L03.311 Cellulitis of abdominal wall; I10 Essential (primary) hypertension; E11.9 Type 2 diabetes mellitus without complications; Z88.0 Allergy status to penicillin; Z88.5 Allergy status to narcotic agent; Z88.8 Allergy status to other drugs, medicaments and biological substances; Z88.1 Allergy status to other antibiotic agents; Z98.890 Other specified postprocedural states; Z79.82 Long term (current) use of aspirin; Z79.899 Other long term (current) drug therapy; Z79.84 Long term (current) use of oral hypoglycemic drugs
CPT/HCPCS: 10060; 99284; A6266; J7120; A6253; A6449